=== PATIENT | female | born 1985 | race Caucasian/White ===

== ENCOUNTER 2017-03-29 23:27 | Emergency (ER) | payer OTHER ==
--- NOTE | 2017-03-30 01:29 | ED ORDER SUMMARY ---
..... Patient: BECKIE SOLORZANO OrderSheet [facility] VisitID: [id number] [address] [place] [address] 31y, F Registration Date/Time: 03/29/2017 ORDER SHEET Weight: 127.0 kg Allergies: Latex GENERAL ORDERS: CT Head wo Cont Urgent (00:50 03/30/2017 Ba DELVALLE) (Ack 0:51 AMcQuoid ER Tech1) (1:07 Wen) MEDICATION ORDERS: IV FLUIDS: ORDER SHEET NOTES: [Electronically signed by Leila Montoya R.N. (01:34 03/30/2017)] [Electronically signed by Richard Chawla MD (00:08 03/31/2017)] [Electronically locked/signed by Leila Montoya R.N. (01:34 03/30/2017)]
--- NOTE | 2017-03-30 01:29 | ED CLINICAL REPORT ---
Clinical Report - Physicians/Mid Levels [facility] [address] [place] [address] 03/29/2017 23:28 Patient: BECKIE SOLORZANO Time Seen: 00:41 Mar 30 2017. Arrived- By private vehicle. Historian- patient. CPT: ER phys charges level 4 (#[id number]). HISTORY OF PRESENT ILLNESS Chief Complaint: PARESTHESIA and FACIAL DROOP. 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 The patient has had weakness, (Had contralateral CHAPMAN 2 days ago. NO trauma. No hx of the same. No hx migraines or vascular disease.). No impaired swallowing. No difficulty walking. At its maximum deficit described as moderate. When seen in the E.D.,deficit described as moderate. No dizziness, altered mental status, seizure or blackouts. Usually is alert and oriented X3 and has normal mobility. Similar symptoms previously: None. Recent medical care: Not recently seen/assessed. REVIEW OF SYSTEMS No fever, headache, head injury, chest pain or difficulty breathing. No cough, sputum production, sore throat, abdominal pain or nausea. No diarrhea, skin rash or enlarged lymph nodes. All systems otherwise negative, except as recorded above. PAST HISTORY ( Asthma. ADDITIONAL SURGERIES: Cholecystectomy. .). No history of stroke, seizure, atrial fibrillation, hypertension or diabetes mellitus. Medications: Singulair Oral. Allergy Oral. ProAir HFA Inhalation. Qvar Inhalation. Allergies: Latex. SOCIAL HISTORY Never smoker. Occasional alcohol use. History of occasional drug use: marijuana. ADDITIONAL NOTES The nursing notes have been reviewed. PHYSICAL EXAM Vital Signs: 03/29/2017 23:37 BP: 142/74. HR: 105. RR: 16. O2 saturation: 96%. Temp: 98.1 F. Pain level now: 0/10. Appearance: Alert. No acute distress. Head: Head atraumatic. Eyes: Pupils equal, round and reactive to light. ENT: Normal ENT inspection. Airway intact. Pharynx normal. Neck: Normal inspection. Neck supple. No meningeal signs or carotid bruit. CVS: Normal heart rate and rhythm. Heart sounds normal. Pulses normal. Respiratory: No respiratory distress. Skin: Skin warm. Normal skin color. No rash. Neuro: Alert. Oriented X 3. Mood/affect normal. Speech normal. Moderate left-sided facial weakness. No sparing of forehead. No decrease in corneal reflex. No cerebellar findings. No motor deficit. No sensory deficit. Reflexes normal. LABS, X-RAYS, AND EKG CT Head: No acute disease. PROGRESS AND PROCEDURES Course of Care: CT of head due to contralateral CHAPMAN reported right before onset of symptoms. [place] palsy is most likely diagnosis. Patient/family counseled. Disposition: Discharged. Condition: stable. 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 INSTRUCTIONS Warnings: Further evaluation is necessary. GENERAL WARNINGS: Return or contact your physician immediately if your condition worsens or changes unexpectedly, if not improving as expected, or if other problems arise. Your Current Medications: CONTINUE TAKING THE FOLLOWING MEDICATIONS: Allergy Oral. ProAir HFA Inhalation. Qvar Inhalation. Singulair Oral. Prescription Medications: Gentamicin ophthalmic ointment 0.3% : Apply 1/2 inch to inner aspect of the lower lid on the affected eye every 8 hours for 1 week. Dispense three and one half (3.5) gm. No refills. Valtrex 1000 mg: take 1 tab orally every 8 hours for 7 days. No refills. Substitution is permissible. Prednisone 20 mg: take 3 orally every day for 7 days. Dispense sufficient quantity. No refills. Follow-up: Follow up with your doctor in one week. Call for an appointment. Understanding of the discharge instructions verbalized by patient. (Electronically signed by Richard Chawla MD 03/31/2017 0:08)
--- NOTE | 2017-03-30 01:29 | ED ORDER SUMMARY ---
..... Patient: BECKIE SOLORZANO OrderSheet [facility] VisitID: [id number] [address] [place] [address] 31y, F Registration Date/Time: 03/29/2017 ORDER SHEET Weight: 127.0 kg Allergies: Latex GENERAL ORDERS: CT Head wo Cont Urgent (00:50 03/30/2017 Ba DELVALLE) (Ack 0:51 AMcQuoid ER Tech1) (1:07 Wen) MEDICATION ORDERS: IV FLUIDS: ORDER SHEET NOTES: [Electronically signed by Leila Montoay R.N. (01:34 03/30/2017)] [Electronically signed by Richard Chawla MD (00:08 03/31/2017)] [Electronically locked/signed by Leila Montoya R.N. (01:34 03/30/2017)]
--- NOTE | 2017-03-30 01:29 | ED CLINICAL REPORT ---
Clinical Report - Physicians/Mid Levels [facility] [address] [place] [address] 03/29/2017 23:28 Patient: BECKIE SOLORZANO Time Seen: 00:41 Mar 30 2017. Arrived- By private vehicle. Historian- patient. CPT: ER phys charges level 4 (#[id number]). HISTORY OF PRESENT ILLNESS Chief Complaint: PARESTHESIA and FACIAL DROOP. 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 The patient has had weakness, (Had contralateral CHAPMAN 2 days ago. NO trauma. No hx of the same. No hx migraines or vascular disease.). No impaired swallowing. No difficulty walking. At its maximum deficit described as moderate. When seen in the E.D.,deficit described as moderate. No dizziness, altered mental status, seizure or blackouts. Usually is alert and oriented X3 and has normal mobility. Similar symptoms previously: None. Recent medical care: Not recently seen/assessed. REVIEW OF SYSTEMS No fever, headache, head injury, chest pain or difficulty breathing. No cough, sputum production, sore throat, abdominal pain or nausea. No diarrhea, skin rash or enlarged lymph nodes. All systems otherwise negative, except as recorded above. PAST HISTORY ( Asthma. ADDITIONAL SURGERIES: Cholecystectomy. .). No history of stroke, seizure, atrial fibrillation, hypertension or diabetes mellitus. Medications: Singulair Oral. Allergy Oral. ProAir HFA Inhalation. Qvar Inhalation. Allergies: Latex. SOCIAL HISTORY Never smoker. Occasional alcohol use. History of occasional drug use: marijuana. ADDITIONAL NOTES The nursing notes have been reviewed. PHYSICAL EXAM Vital Signs: 03/29/2017 23:37 BP: 142/74. HR: 105. RR: 16. O2 saturation: 96%. Temp: 98.1 F. Pain level now: 0/10. Appearance: Alert. No acute distress. Head: Head atraumatic. Eyes: Pupils equal, round and reactive to light. ENT: Normal ENT inspection. Airway intact. Pharynx normal. Neck: Normal inspection. Neck supple. No meningeal signs or carotid bruit. CVS: Normal heart rate and rhythm. Heart sounds normal. Pulses normal. Respiratory: No respiratory distress. Skin: Skin warm. Normal skin color. No rash. Neuro: Alert. Oriented X 3. Mood/affect normal. Speech normal. Moderate left-sided facial weakness. No sparing of forehead. No decrease in corneal reflex. No cerebellar findings. No motor deficit. No sensory deficit. Reflexes normal. LABS, X-RAYS, AND EKG CT Head: No acute disease. PROGRESS AND PROCEDURES Course of Care: CT of head due to contralateral CHAPMAN reported right before onset of symptoms. [place] palsy is most likely diagnosis. Patient/family counseled. Disposition: Discharged. Condition: stable. 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 INSTRUCTIONS Warnings: Further evaluation is necessary. GENERAL WARNINGS: Return or contact your physician immediately if your condition worsens or changes unexpectedly, if not improving as expected, or if other problems arise. Your Current Medications: CONTINUE TAKING THE FOLLOWING MEDICATIONS: Allergy Oral. ProAir HFA Inhalation. Qvar Inhalation. Singulair Oral. Prescription Medications: Gentamicin ophthalmic ointment 0.3% : Apply 1/2 inch to inner aspect of the lower lid on the affected eye every 8 hours for 1 week. Dispense three and one half (3.5) gm. No refills. Valtrex 1000 mg: take 1 tab orally every 8 hours for 7 days. No refills. Substitution is permissible. Prednisone 20 mg: take 3 orally every day for 7 days. Dispense sufficient quantity. No refills. Follow-up: Follow up with your doctor in one week. Call for an appointment. Understanding of the discharge instructions verbalized by patient. (Electronically signed by Richard Chawla MD 03/31/2017 0:08)
--- NOTE | 2017-03-30 01:29 | ED NURSING NOTES ---
Clinical Report - Nurses [facility] [address] [place] [address] 03/29/2017 23:28 Patient: BECKIE SOLORZANO TRIAGE Triage time 23:33. Acuity: LEVEL 3. --23:37 TonAlcides CarrilloN. 23:37 03/29/17. BP: 142/74. HR: 105. RR: 16. O2 saturation: 96%. Temp: 98.1 F. Pain level now: 010. --23:38 TonGerardo R.N. Chief Complaint: EYE PAIN. --01:34 TonGerardo R.N. Weight: 127 kg. Height/Length: 69 inches. BMI: 41.4. --23:37 Jacob R.N. Medications Qvar Inhalation. --23:36 LeilaB R.N. ProAir HFA Inhalation. --23:36 TonmirB R.N. Allergy Oral. --23:36 Jacob R.N. Singulair Oral. --23:36 Jacob R.N. Allergies Latex. --23:35 Jacob R.N. History Arrived by private vehicle. Historian: patient. Accompanied by family. This is a new problem and onset was gradual. (3 ago). PAST MEDICAL HX: Immunizations: up-to-date. Last normal menstrual period- 3 weeks ago. SOCIAL HX: Never smoker. Occasional alcohol use. History of occasional drug use: marijuana. No infectious disease exposure. SELF HARM ASSESSMENT: A self harm assessment was performed. The patient answered "no" to the question "Have you recently felt down, depressed, or hopeless?", "Have you noticed less interest or pleasure in doing things?", "Do you have thoughts of harming or killing yourself?", "Are you here because you tried to hurt yourself?", "Have you ever tried to hurt yourself before today?", "Have you recently had thoughts about harming or killing others?" and "Do you have any dangerous items in your possession?". FALL RISK ASSESSMENT: Fall risk assessment completed. No fall risk identified. NUTRITIONAL RISK ASSESSMENT: The nutritional risk assessment revealed no deficiencies. FUNCTIONAL ASSESSMENT: Functional assessment: no impairments noted. LEARNING NEEDS ASSESSMENT: The learning needs assessment revealed no barriers. ABUSE ASSESSMENT: Abuse assessment: The patient was asked "Do you feel safe in your home?". SKIN INTEGRITY ASSESSMENT: Skin integrity risk assessment completed. No skin integrity risk identified. --23:37 Rogelio James. PROBLEMS: Asthma. --23:37 Rogelio Jaems. ADDITIONAL SURGERIES: Cholecystectomy. . --23:37 Rogelio James. Interventions ID band on patient. To treatment room. --23:37 Rogelio James. PHYSICAL ASSESSMENT Ambulatory to room. GENERAL / NEURO / PSYCH: Alert. Oriented X 4. Appears in no acute distress. HEENT: Pupils equal, round and reactive to light. Facial weakness. Mucous membranes are pink. RESPIRATORY: Respirations not labored. Chest nontender. Breath sounds within normal limits. CVS: Normal sinus rhythm noted. Capillary refill less than 2 seconds. Pulses within normal limits. GI / : Abdomen soft and nontender and normal bowel sounds. SKIN: Skin intact. Skin is warm and dry. Normal skin turgor. --23:38 Rogelio James. NURSING PROGRESS NOTES Patient gowned. Patient identifiers checked. Call light placed in reach. Side rails up x 1. Bed placed in lowest position. Brakes of bed on. --23:39 Tracy James DISPOSITION / DISCHARGE Departure time: 7. Condition at departure: improved. No learning barriers present. Discharge instructions provided and reviewed with the patient. Reviewed medication(s) side effects, precautions, dosing and course information. Prescription(s) given to the patient. Patient verbalized understanding. Written instructions provided in Georgian. No warning instructions, treatment instructions, referrals given to the patient, diet instructions or activity restrictions. No note given, follow up contact number given or stop smoking instructions. The patient was discharged by the physician. She was discharged home and accompanied by spouse. She left the Emergency Department ambulatory and via private vehicle. Spouse driving. FALL RISK ASSESSMENT: Fall risk assessment completed. No fall risk identified. --01:34 Rogelio James. 01:33 03/30/17. BP: 124/78. HR: 68. RR: 18. O2 saturation: 99%. Temp: deferred. Pain level now: 0/10. --01:34 Tracy James Locked/Released at 03/30/2017 1:34 by Tracy James
--- NOTE | 2017-03-30 06:52 | DIAGNOSTIC IMAGING REPORT ---
PROCEDURE: CT HEAD WITHOUT CONTRAST INDICATION: NEURO SYMPTOMS TECHNIQUE: Noncontrast axial images with sagittal and coronal reformations. COMPARISON: None. FINDINGS: Sulci, ventricular system, and brain parenchyma are normal. No evidence of acute intracranial process. Visualized mastoids and sinuses are clear. IMPRESSION: 1. Negative non-enhanced head CT. 2. Preliminary findings submitted by Dr. Bueno, [facility] radiology.
--- NOTE | 2017-03-31 00:08 | ED DISCHARGE INSTRUCTIONS ---
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 INSTRUCTIONS Warnings: Further evaluation is necessary. GENERAL WARNINGS: Return or contact your physician immediately if your condition worsens or changes unexpectedly, if not improving as expected, or if other problems arise. Your Current Medications: CONTINUE TAKING THE FOLLOWING MEDICATIONS: Allergy Oral. ProAir HFA Inhalation. Qvar Inhalation. Singulair Oral. Prescription Medications: Gentamicin ophthalmic ointment 0.3% : Apply 1/2 inch to inner aspect of the lower lid on the affected eye every 8 hours for 1 week. Dispense three and one half (3.5) gm. No refills. Valtrex 1000 mg: take 1 tab orally every 8 hours for 7 days. No refills. Substitution is permissible. Prednisone 20 mg: take 3 orally every day for 7 days. Dispense sufficient quantity. No refills. Follow-up: Follow up with your doctor in one week. Call for an appointment. Understanding of the discharge instructions verbalized by patient. ADDITIONAL INFORMATION Salcido's Palsy Salcido's Palsy is a problem involving the nerve that controls the muscles on one side of the face. The cause is unknown, but may be related to inflammation of the nerve. Most persons with this problem recover completely within 3-6 months. Symptoms on the involved side of the face may include: inability to close the upper eyelid, excess tearing, facial drooping with uneven mouth shape, drooling, facial numbness or pain, changes in taste, sensitivity to sound. The most serious problem is possible injury to the eye. Since you cannot blink normally, you must protect your eye from flying dust particles, wind, etc. Also, since tears cannot lubricate the eye without blinking, there is danger that the cornea (clear part in front of the colored iris) will dry out and form an ulcer. This could permanently affect vision. Home Care: Use Artificial Tears frequently during the day and at bedtime to prevent drying. These drops are available without prescription at your drug store. Wear protective glasses especially when outside to protect from flying debris. Tape the eyelid closed at bedtime with a paper tape (available at your pharmacy). This has a very mild adhesive to avoid injury to the lid. This will protect your eye from injury while you sleep. Sometimes medicines are prescribed to reduce inflammation or treat specific viral infections of the nerve. If medicines are prescribed, take them exactly as directed. Follow Up with your doctor or with an Ear/Nose/Throat specialist within the next two weeks. Get Prompt Medical Attention if any of the following occur: Redness of the eye or pus draining from the eye Change in vision or pain in the eye Appearance of headache, neck pain, fever or other unexplained symptoms Difficulty with speech or walking Weakness in one arm or leg Prednisone Oral tablet What is this medicine? PREDNISONE (PRED ni sone) is a corticosteroid. It is commonly used to treat inflammation of the skin, joints, lungs, and other organs. Common conditions treated include asthma, allergies, and arthritis. It is also used for other conditions, such as blood disorders and diseases of the adrenal glands. How should I use this medicine? Take this medicine by mouth with a glass of water. Follow the directions on the prescription label. Take this medicine with food. If you are taking this medicine once a day, take it in the morning. Do not take more medicine than you are told to take. Do not suddenly stop taking your medicine because you may develop a severe reaction. Your doctor will tell you how much medicine to take. If your doctor wants you to stop the medicine, the dose may be slowly lowered over time to avoid any side effects. Talk to your billet checker regarding the use of this medicine in children. Special care may be needed. What side effects may I notice from receiving this medicine? Side effects that you should report to your doctor or health career coordinator as soon as possible: allergic reactions like skin rash, itching or hives, swelling of the face, lips, or tongue changes in emotions or moods changes in vision depressed mood eye pain fever or chills, cough, sore throat, pain or difficulty passing urine increased thirst swelling of ankles, feet Side effects that usually do not require medical attention (report to your doctor or health career coordinator if they continue or are bothersome): confusion, excitement, restlessness headache nausea, vomiting skin problems, acne, thin and shiny skin trouble sleeping weight gain What may interact with this medicine? Do not take this medicine with any of the following medications: metyrapone mifepristone This medicine may also interact with the following medications: aminoglutethimide amphotericin B aspirin and aspirin-like medicines barbiturates certain medicines for diabetes, like glipizide or glyburide cholestyramine cholinesterase inhibitors cyclosporine digoxin diuretics ephedrine female hormones, like estrogens and control pills isoniazid ketoconazole NSAIDS, medicines for pain and inflammation, like ibuprofen or naproxen phenytoin rifampin toxoids vaccines warfarin What if I miss a dose? If you miss a dose, take it as soon as you can. If it is almost time for your next dose, talk to your doctor or health career coordinator. You may need to miss a dose or take an extra dose. Do not take double or extra doses without advice. Where should I keep my medicine? Keep out of the reach of children. Store at room temperature between 15 and 30 degrees C (59 and 86 degrees F). Protect from light. Keep container tightly closed. Throw away any unused medicine after the expiration date. What should I tell my health care provider before I take this medicine? They need to know if you have any of these conditions: Erick's syndrome diabetes glaucoma heart disease high blood pressure infection (especially a virus infection such as chickenpox, cold sores, or herpes) kidney disease liver disease mental illness myasthenia gravis osteoporosis seizures stomach or intestine problems thyroid disease an unusual or allergic reaction to lactose, prednisone, other medicines, foods, dyes, or preservatives or trying to get breast-feeding What should I watch for while using this medicine? Visit your doctor or health career coordinator for regular checks on your progress. If you are taking this medicine over a prolonged period, carry an identification card with your name and address, the type and dose of your medicine, and your doctor's name and address. This medicine may increase your risk of getting an infection. Tell your doctor or health career coordinator if you are around anyone with measles or chickenpox, or if you develop sores or blisters that do not heal properly. If you are going to have surgery, tell your doctor or health career coordinator that you have taken this medicine within the last twelve months. Ask your doctor or health career coordinator about your diet. You may need to lower the amount of salt you eat. This medicine may affect blood sugar levels. If you have diabetes, check with your doctor or health career coordinator before you change your diet or the dose of your diabetic medicine. You have been given the following additional information: Salcido's Palsy Prednisone Oral tablet (Electronically signed by Richard Chawla MD 03/31/2017 0:08)
--- NOTE | 2017-03-31 00:08 | ED DISCHARGE INSTRUCTIONS ---
Patient: BECKIE SOLORZANO General Instructions 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 INSTRUCTIONS Warnings: Further evaluation is necessary. GENERAL WARNINGS: Return or contact your physician immediately if your condition worsens or changes unexpectedly, if not improving as expected, or if other problems arise. Your Current Medications: CONTINUE TAKING THE FOLLOWING MEDICATIONS: Allergy Oral. ProAir HFA Inhalation. Qvar Inhalation. Singulair Oral. Prescription Medications: Gentamicin ophthalmic ointment 0.3% : Apply 1/2 inch to inner aspect of the lower lid on the affected eye every 8 hours for 1 week. Dispense three and one half (3.5) gm. No refills. Valtrex 1000 mg: take 1 tab orally every 8 hours for 7 days. No refills. Substitution is permissible. Prednisone 20 mg: take 3 orally every day for 7 days. Dispense sufficient quantity. No refills. Follow-up: Follow up with your doctor in one week. Call for an appointment. Understanding of the discharge instructions verbalized by patient. ADDITIONAL INFORMATION Salcido's Palsy Salcido's Palsy is a problem involving the nerve that controls the muscles on one side of the face. The cause is unknown, but may be related to inflammation of the nerve. Most persons with this problem recover completely within 3-6 months. Symptoms on the involved side of the face may include: inability to close the upper eyelid, excess tearing, facial drooping with uneven mouth shape, drooling, facial numbness or pain, changes in taste, sensitivity to sound. The most serious problem is possible injury to the eye. Since you cannot blink normally, you must protect your eye from flying dust particles, wind, etc. Also, since tears cannot lubricate the eye without blinking, there is danger that the cornea (clear part in front of the colored iris) will dry out and form an ulcer. This could permanently affect vision. Home Care: Use Artificial Tears frequently during the day and at bedtime to prevent drying. These drops are available without prescription at your drug store. Wear protective glasses especially when outside to protect from flying debris. Tape the eyelid closed at bedtime with a paper tape (available at your pharmacy). This has a very mild adhesive to avoid injury to the lid. This will protect your eye from injury while you sleep. Sometimes medicines are prescribed to reduce inflammation or treat specific viral infections of the nerve. If medicines are prescribed, take them exactly as directed. Follow Up with your doctor or with an Ear/Nose/Throat specialist within the next two weeks. Get Prompt Medical Attention if any of the following occur: Redness of the eye or pus draining from the eye Change in vision or pain in the eye Appearance of headache, neck pain, fever or other unexplained symptoms Difficulty with speech or walking Weakness in one arm or leg Prednisone Oral tablet What is this medicine? PREDNISONE (PRED ni sone) is a corticosteroid. It is commonly used to treat inflammation of the skin, joints, lungs, and other organs. Common conditions treated include asthma, allergies, and arthritis. It is also used for other conditions, such as blood disorders and diseases of the adrenal glands. How should I use this medicine? Take this medicine by mouth with a glass of water. Follow the directions on the prescription label. Take this medicine with food. If you are taking this medicine once a day, take it in the morning. Do not take more medicine than you are told to take. Do not suddenly stop taking your medicine because you may develop a severe reaction. Your doctor will tell you how much medicine to take. If your doctor wants you to stop the medicine, the dose may be slowly lowered over time to avoid any side effects. Talk to your associate consulting engineer regarding the use of this medicine in children. Special care may be needed. What side effects may I notice from receiving this medicine? Side effects that you should report to your doctor or health care rep as soon as possible: allergic reactions like skin rash, itching or hives, swelling of the face, lips, or tongue changes in emotions or moods changes in vision depressed mood eye pain fever or chills, cough, sore throat, pain or difficulty passing urine increased thirst swelling of ankles, feet Side effects that usually do not require medical attention (report to your doctor or health care rep if they continue or are bothersome): confusion, excitement, restlessness headache nausea, vomiting skin problems, acne, thin and shiny skin trouble sleeping weight gain What may interact with this medicine? Do not take this medicine with any of the following medications: metyrapone mifepristone This medicine may also interact with the following medications: aminoglutethimide amphotericin B aspirin and aspirin-like medicines barbiturates certain medicines for diabetes, like glipizide or glyburide cholestyramine cholinesterase inhibitors cyclosporine digoxin diuretics ephedrine female hormones, like estrogens and control pills isoniazid ketoconazole NSAIDS, medicines for pain and inflammation, like ibuprofen or naproxen phenytoin rifampin toxoids vaccines warfarin What if I miss a dose? If you miss a dose, take it as soon as you can. If it is almost time for your next dose, talk to your doctor or health care rep. You may need to miss a dose or take an extra dose. Do not take double or extra doses without advice. Where should I keep my medicine? Keep out of the reach of children. Store at room temperature between 15 and 30 degrees C (59 and 86 degrees F). Protect from light. Keep container tightly closed. Throw away any unused medicine after the expiration date. What should I tell my health care provider before I take this medicine? They need to know if you have any of these conditions: Erick's syndrome diabetes glaucoma heart disease high blood pressure infection (especially a virus infection such as chickenpox, cold sores, or herpes) kidney disease liver disease mental illness myasthenia gravis osteoporosis seizures stomach or intestine problems thyroid disease an unusual or allergic reaction to lactose, prednisone, other medicines, foods, dyes, or preservatives or trying to get breast-feeding What should I watch for while using this medicine? Visit your doctor or health care rep for regular checks on your progress. If you are taking this medicine over a prolonged period, carry an identification card with your name and address, the type and dose of your medicine, and your doctor's name and address. This medicine may increase your risk of getting an infection. Tell your doctor or health care rep if you are around anyone with measles or chickenpox, or if you develop sores or blisters that do not heal properly. If you are going to have surgery, tell your doctor or health care rep that you have taken this medicine within the last twelve months. Ask your doctor or health care rep about your diet. You may need to lower the amount of salt you eat. This medicine may affect blood sugar levels. If you have diabetes, check with your doctor or health care rep before you change your diet or the dose of your diabetic medicine. You have been given the following additional information: Salcido's Palsy Prednisone Oral tablet (Electronically signed by Richard Chawla MD 03/31/2017 0:08)
--- NOTE | 2017-03-31 00:08 | ED MAR SUMMARY ---
..... Medication Administration Record [facility] [address] [place], [place] [id number] Patient: BECKIE SOLORZANO Visit ID: [id number] 31y, F Weight: 127.0 kg Height/Length: 69 in BMI: 41.4 ALLERGIES: Latex
--- NOTE | 2017-03-31 00:08 | ED MAR SUMMARY ---
..... Medication Administration Record [facility] [address] [place], [place] [id number] Patient: BECKIE SOLORZANO Visit ID: [id number] 31y, F Weight: 127.0 kg Height/Length: 69 in BMI: 41.4 ALLERGIES: Latex
--- NOTE | 2017-03-31 00:09 | ED MED RECONCILIATION SUMMARY ---
Patient: BECKIE SOLORZANO Medication Reconciliation Report [facility] VisitID: [id number] [address] [place] [address] 31y, F Registration Date/Time: 03/29/2017 Weight: 127.0 kg Height/Length: 69 in. BMI: 41.4 ALLERGIES: Latex The patient's Home Medications are listed below: CONTINUE TAKING THE FOLLOWING MEDICATIONS: Allergy Oral ProAir HFA Inhalation Qvar Inhalation Singulair Oral The source(s) of the original Home Medication information: Not obtained. The following Medications were given to the patient in the Emergency Department: None. The following Medications were prescribed to the patient: Gentamicin ophthalmic ointment 0.3% : Apply 1/2 inch to inner aspect of the lower lid on the affected eye every 8 hours for 1 week. Dispense three and one half (3.5) gm. No refills. -- Richard Chawla MD Valtrex 1000 mg: take 1 tab orally every 8 hours for 7 days. No refills. Substitution is permissible. -- Richard Chawla MD Prednisone 20 mg: take 3 orally every day for 7 days. Dispense sufficient quantity. No refills. -- Richard Chawla MD
--- NOTE | 2017-03-31 00:09 | ED MED RECONCILIATION SUMMARY ---
Patient: BECKIE SOLORZANO Medication Reconciliation Report [facility] VisitID: [id number] [address] [place] [address] 31y, F Registration Date/Time: 03/29/2017 Weight: 127.0 kg Height/Length: 69 in. BMI: 41.4 ALLERGIES: Latex The patient's Home Medications are listed below: CONTINUE TAKING THE FOLLOWING MEDICATIONS: Allergy Oral ProAir HFA Inhalation Qvar Inhalation Singulair Oral The source(s) of the original Home Medication information: Not obtained. The following Medications were given to the patient in the Emergency Department: None. The following Medications were prescribed to the patient: Gentamicin ophthalmic ointment 0.3% : Apply 1/2 inch to inner aspect of the lower lid on the affected eye every 8 hours for 1 week. Dispense three and one half (3.5) gm. No refills. -- Richard Chawla MD Valtrex 1000 mg: take 1 tab orally every 8 hours for 7 days. No refills. Substitution is permissible. -- Richard Chawla MD Prednisone 20 mg: take 3 orally every day for 7 days. Dispense sufficient quantity. No refills. -- Richard Chawla MD
== END 2017-03-30 01:27 | disposition home or self-care (01) ==
LOC: ED SRH 23:27
DX: G51.0 Bell's palsy (principal); Z79.899 Other long term (current) drug therapy; Z91.040 Latex allergy status